=== PATIENT | male | born 1950 | race Caucasian/White ===

== ENCOUNTER → 2016-08-04 | Day surgery (SDC) | payer OTHER ==
[~2016-08-04] MED LIST: BUPIVACAINE HCL PF 0.75% 30 ML VIAL ONE; LACTATED RINGER'S 1000 ML INJ 1,000 ML ONE; LIDOCAINE 1.5%/EPINEPHrine 1:200,000 PF SOLN 30 ML AMP NERV BLOCK ONE; MIDAZOLAM HCL 2 MG/2 ML VIAL ONE; MIDAZOLAM HCL 5 MG/ML VIAL (1 ML) ONE; ONDANSETRON HCL 4 MG/2 ML VIAL IV PUSH ONE; PROPOFOL 500 MG/50 ML BTL IV ONE; ceFAZolin 2 GM PREMIX 50 ML ONE
--- NOTE | 2016-08-07 17:58 | MP ---
cc: RODOLFO ESCOTO DATE OF SURGERY 08/04/16 PREOPERATIVE DIAGNOSIS 1. Right shoulder rotator cuff tear 2. Right shoulder impingement syndrome 3. Right shoulder SLAP labral tear 4. Right shoulder partial biceps tear 5. Right shoulder osteoarthritis acromioclavicular joint. POSTOPERATIVE DIAGNOSES 1. Right shoulder rotator cuff tear 2. Right shoulder impingement syndrome 3. Right shoulder SLAP labral tear 4. Right shoulder partial biceps tear 5. Right shoulder osteoarthritis acromioclavicular joint. PROCEDURE 1. Right shoulder arthroscopic rotator cuff repair 2. Right shoulder arthroscopic subacromial decompression 3. Right shoulder arthroscopic extensive debridement of SLAP labral tear and biceps tear 4. Right shoulder arthroscopic distal clavicle excision. SURGEON Dr. Renny Escoto CIRCUIT RIDER BERNADETTE Brandt ANESTHESIA General with an interscalene block. ESTIMATED BLOOD LOSS Less then 10 mL COMPLICATIONS None. IMAGING STUDIES [employer] JUSTIFICATION This patient is a 65-year-old male who injured the right shoulder. He has had persistent of pain and weakness in regards to the condition with failure of conservative treatments. He had a history of prior rotator cuff surgery many, many years ago. Clinical exam as well as MRI confirmed the above-named findings. Patent was counseled as to risks, benefits and alternatives of the above named proposed surgical procedure. He did wish to proceed with surgery. PROCEDURE IN DETAIL A written consent was obtained. The patient was identified by name, taken to the operating room, placed in supine position on the operating room table. General anesthesia was administered as well as 2 grams of IV Ancef. He did receive preoperative interscalene block. The patient was carefully turned to the left lateral decubitus position. Lateral arm roll was placed, all bony prominences and pressure points were well padded. The patient's neck was monitored and kept neutral. Arthroscopic arm johnson was gently applied to right upper extremity with 10 pounds of traction placed. The right shoulder prepped and draped using isopropyl alcohol, Hibiclens solution and DuraPrep solution. After a time-out was performed, a standard posterior anterior glenohumeral arthroscope portal was established. The glenohumeral joint revealed extensive labral tearing along the anterior, posterior and superior aspects. An arthroscopic shaver was introduced in the anterior portal and extensive debridement of the labrum was performed along the 3 o'clock position up to the 12 o'clock position back down to the 9 o'clock position. Biceps origin was intact, but there was evidence of partial tearing of the biceps just as it extended from the glenohumeral joint. The biceps was then retracted proximally into the joint and debridement of the partial tear was performed. No evidence of full-thickness or severe high-grade tearing was noted. There was evidence of full-thickness tear of supraspinatus tendon as visualized on glenohumeral joint which was debrided. Minimal chondromalacia to glenohumeral joint was noted. Attention was turned to the subacromial space. There was evidence of significant impingement with bursitis. Arthroscopic shaver was introduced into lateral portal. A subacromial decompression was performed. The shaver was used to perform extensive bursectomy. The arthroscopic bur was used to perform an acromioplasty and the cautery device was used to release the coracoacromial ligament. The bur was used to decorticate the greater tuberosity in preparation for rotator cuff tendon repair. An Arthrex scorpion device was used to shuttle #2 fiber tape suture through the anterior posterior portion of the torn tendon and #2 fiber link suture was placed along the far posterior portion. The sutures were then placed through the eyelet of an Arthrex 4.75 mm bio-swivel lock anchor. The anchor was then inserted in the greater tuberosity after appropriate tensioning of sutures. There was good purchase and fixation after insertion of the anchor and the rotator cuff tendon repair was probed and noted to have good stability. At this point, an arthroscopic distal clavicle excision was performed. The bur was used to perform an excision of approximately 1 cm of distal clavicle initially from the lateral portal and subsequently from a separate anterior portal. There was no evidence of impingement after resection of the 1 cm distal clavicle osteophytic spurring. At the conclusion of the surgical procedure, the arthroscopic portals were closed with 3-0 Prolene suture. Sterile dressing applied. The patient was placed in sling and swath immobilizer. He tolerated the procedure well. No intraoperative his noted. Apollo Patterson, physician certified ophthalmic surgical assistant certified, was present throughout the procedure to include patient positioning and the procedure itself. The medical necessity of a physician certified ophthalmic surgical assistant was indicated in this case due to the complexity of the procedure He assisted with appropriate manipulation of the arm and also manipulation of the camera for visualization purposes. He assisted with both shuttling of sutures then implantation of suture anchor for purposes of rotator cuff tendon repair. MD CARLOS Cook/ /2:28 PM /5:37 PM
== END | disposition home or self-care (01) ==
LOC: ESDC 11:07
PROVIDERS: ATTEND Orthopaedic Surgery Sports Medicine
DX: M75.121 Complete rotator cuff tear or rupture of right shoulder, not specified as traumatic (principal); M75.41 Impingement syndrome of right shoulder; S43.431A Superior glenoid labrum lesion of right shoulder, initial encounter; S46.211A Strain of muscle, fascia and tendon of other parts of biceps, right arm, initial encounter; M19.011 Primary osteoarthritis, right shoulder
CPT/HCPCS: 01630; 01991; 29823; 29824; 29826; 29827; 64417; C1713; J0690; J2250; J2405; J7120